=== PATIENT | female | born 1965 | race Caucasian/White ===

== ENCOUNTER 2023-02-21 02:05 | Inpatient (IN) | payer BC ==
[~2023-02-21] VITALS: Ht 172.7 cm; Wt 83.9 kg
[2023-02-21] VITALS (20 sets, daily range): BP systolic 108–162; BP diastolic 65–102; TEMP 97.5–98.3; O2SAT 92–99
[2023-02-21] MEDS ORDERED: ADENOSINE 6 MG/2 ML SYR IV ONE ×8 (02:15→16:15)
[2023-02-21 02:31] LABS: BASOPHILS % (AUTO) 0.2 % (0.0-2.0); EOSINOPHILS % (AUTO) 0.2 % (0.0-7.0); HEMATOCRIT 38.7 % (31.2-41.9); HEMOGLOBIN 12.9 g/dL (10.9-14.3); LYMPHOCYTES # (AUTO) 1.4 K/uL (0.8-4.8); LYMPHOCYTES % (AUTO) 15.1 % (20.5-51.5); MEAN CORPUSCULAR HEMOGLOBIN 27.1 uug (24.7-32.8); MEAN CORPUSCULAR HGB CONC 33 g/dL (32.3-35.6); MONOCYTES # (AUTO) 0.6 K/uL (0.1-1.30); MONOCYTES % (AUTO) 6.4 % (0.0-11.0); NEUTROPHILS # (AUTO) 7.3 K/uL (1.8-8.9); NEUTROPHILS % (AUTO) 78.1 % (38.5-71.5); PLATELET COUNT (AUTO) 311 K/uL (179-408); RED BLOOD CELL COUNT(AUTO) 4.78 MIL/uL (3.63-4.92); RED CELL DISTRIBUTION WIDTH 13.6 % (12.3-17.7); WHITE BLOOD COUNT (AUTO) 9.4 K/uL (3.8-11.8)
[2023-02-21 02:37] LABS: DIFFERENTIAL COMMENT 1
[2023-02-21 02:38] LABS: MAGNESIUM 1.8 mg/dL (1.8-2.4)
[2023-02-21] MEDS ORDERED: METOPROLOL SUCCINATE XL 25 MG TAB.SR.24H PO ONE (02:45)
[2023-02-21] MEDS ORDERED: IV NORMAL SALINE 500 ML BAG IV ONE (03:00)
[2023-02-21] MEDS ORDERED: DILTIAZEM HCL IV 20 MG in IV DEXTROSE 5% 100 ML IV ONE (03:00)
[2023-02-21] MEDS ORDERED: DILTIAZEM HCL 25 MG IV ONE ×2 (03:00→03:56)
[2023-02-21 03:41] LABS: THYROID STIMULATING HORMONE < 0.007 mIU/mL (0.358-3.740)
[2023-02-21] MEDS ORDERED: DILTIAZEM HCL IV ONE (03:45)
[2023-02-21] MEDS ORDERED: DEXTROSE 5% IV ONE (03:45)
[2023-02-21 03:48] LABS: CALCIUM 9.8 mg/dL (8.5-10.1); CREATININE 0.6 mg/dL (0.6-1.3); POTASSIUM 3.8 mmol/L (3.5-5.1)
[2023-02-21 03:54] LABS: ALBUMIN 3.9 g/dL (3.4-5.0); BILIRUBIN,TOTAL 0.4 mg/dL (0.2-1.0); TOTAL PROTEIN, SERUM 6.9 g/dL (6.4-8.2)
[2023-02-21] MEDS ORDERED: DILTIAZEM HCL IV 125 MG in IV NORMAL SALINE 100 ML IV PRN ×2 (04:30→05:30)
[2023-02-21] MEDS ORDERED: ACETAMINOPHEN 325 MG TABLET PO PRN ×2 (05:15→07:15)
[2023-02-21] MEDS ORDERED: MORPHINE SULFATE 2 MG/1 ML DISP.SYRIN IV PRN (05:15)
[2023-02-21] MEDS ORDERED: REMEDY ESSENTIAL ZINC PASTE 113 GM TP PRN (05:15)
[2023-02-21] MEDS ORDERED: MAGNESIUM HYDROXIDE 30 ML LIQUID UDC PO PRN (05:15)
[2023-02-21] MEDS ORDERED: ONDANSETRON 4 MG/2 ML VIAL IV PRN (05:15)
[2023-02-21] MEDS: ENOXAPARIN SODIUM 40 MG/0.4 ML DISP.SYRIN SQ SCH ×2 (08:50→17:58)
[2023-02-21] MEDS ORDERED: PANTOPRAZOLE SODIUM 40 MG VIAL IV SCH (09:00)
[2023-02-21] MEDS ORDERED: METHIMAZOLE 5 MG TABLET PO SCH (09:00)
[2023-02-21] MEDS: DILTIAZEM HCL CD 120 MG CAP.SR.24H PO SCH (11:15)
[2023-02-21] MEDS ORDERED: DILT120C87 PO (13:05)
[2023-02-21] MEDS ORDERED: METH5TAB34 PO (13:05)
[2023-02-21] MEDS ORDERED: FENTANYL CITRATE 100 MCG/2 ML AMPUL IV ONE (16:30)
[2023-02-21] MEDS ORDERED: ETOMIDATE 20 MG/10 ML VIAL IV ONE (16:30)
[2023-02-21] MEDS ORDERED: AMIODARONE HCL IV 150 MG in IV DEXTROSE 5% 100 ML IV ONE ×2 (16:45→17:00)
[2023-02-21] MEDS: AMIODARONE HCL IV 450 MG in IV DEXTROSE 5% 250 ML IV PRN (17:24)
[2023-02-21] MEDS: ENOXAPARIN SODIUM 80 MG/0.8 ML DISP.SYRIN SQ ONE ×3 (18:12→18:22)
[2023-02-22] VITALS (31 sets, daily range): BP systolic 106–174; BP diastolic 55–95; TEMP 97.8–98.9; O2SAT 90–100
[2023-02-22 05:05] LABS: BASOPHILS % (AUTO) 0.3 % (0.0-2.0); EOSINOPHILS # (AUTO) 0.1 K/uL (0.0-0.7); EOSINOPHILS % (AUTO) 1.4 % (0.0-7.0); HEMATOCRIT 34.9 % (31.2-41.9); HEMOGLOBIN 11.5 g/dL (10.9-14.3); LYMPHOCYTES # (AUTO) 1.4 K/uL (0.8-4.8); LYMPHOCYTES % (AUTO) 33.4 % (20.5-51.5); MEAN CORPUSCULAR HGB CONC 33 g/dL (32.3-35.6); MEAN CORPUSCULAR VOLUME 81.6 fL (75.5-95.3); MONOCYTES # (AUTO) 0.3 K/uL (0.1-1.30); MONOCYTES % (AUTO) 7.5 % (0.0-11.0); NEUTROPHILS # (AUTO) 2.5 K/uL (1.8-8.9); NEUTROPHILS % (AUTO) 57.4 % (38.5-71.5); PLATELET COUNT (AUTO) 220 K/uL (179-408); RED BLOOD CELL COUNT(AUTO) 4.27 MIL/uL (3.63-4.92); RED CELL DISTRIBUTION WIDTH 13.8 % (12.3-17.7); WHITE BLOOD COUNT (AUTO) 4.3 K/uL (3.8-11.8)
[2023-02-22 05:34] LABS: DIFFERENTIAL COMMENT 1
[2023-02-22 05:36] LABS: CALCIUM 8.5 mg/dL (8.5-10.1); CREATININE 0.5 mg/dL (0.6-1.3); MAGNESIUM 1.9 mg/dL (1.8-2.4); PHOSPHOROUS 3.5 mg/dL (2.5-4.9); POTASSIUM 3.7 mmol/L (3.5-5.1)
[2023-02-22] MEDS ORDERED: MORPHINE SULFATE 2 MG/1 ML DISP.SYRIN IV PRN (06:58)
[2023-02-22] MEDS ORDERED: METHIMAZOLE 5 MG TABLET PO SCH ×2 (09:00→16:30)
[2023-02-22] MEDS: ENOXAPARIN SODIUM 80 MG/0.8 ML DISP.SYRIN SQ SCH ×2 (09:19→20:33)
[2023-02-22] MEDS: DILTIAZEM HCL CD 120 MG CAP.SR.24H PO SCH (09:20)
[2023-02-22] MEDS: PANTOPRAZOLE SODIUM 40 MG TABLET.DR PO SCH (09:20)
[2023-02-22] MEDS: DILTIAZEM HCL IV 125 MG in IV NORMAL SALINE 100 ML IV PRN ×2 (11:26→18:47)
[2023-02-22] MEDS: AMIODARONE HCL IV 450 MG in IV DEXTROSE 5% 250 ML IV PRN ×3 (12:09)
[2023-02-22] MEDS ORDERED: AMIODARONE HCL IV 450 MG in IV DEXTROSE 5% 250 ML IV PRN (16:45)
[2023-02-23] VITALS (47 sets, daily range): BP systolic 71–149; BP diastolic 48–82; TEMP 97.6–98.1; O2SAT 90–99
[2023-02-23] MEDS: DILTIAZEM HCL IV 125 MG in IV NORMAL SALINE 100 ML IV PRN ×2 (03:41→15:41)
[2023-02-23] MEDS: PANTOPRAZOLE SODIUM 40 MG TABLET.DR PO SCH (06:57)
[2023-02-23 08:36] LABS: BASOPHILS % (AUTO) 0.3 % (0.0-2.0); EOSINOPHILS # (AUTO) 0.1 K/uL (0.0-0.7); EOSINOPHILS % (AUTO) 1.1 % (0.0-7.0); HEMATOCRIT 35.5 % (31.2-41.9); HEMOGLOBIN 11.7 g/dL (10.9-14.3); LYMPHOCYTES # (AUTO) 1.1 K/uL (0.8-4.8); MEAN CORPUSCULAR HEMOGLOBIN 26.9 uug (24.7-32.8); MEAN CORPUSCULAR HGB CONC 33 g/dL (32.3-35.6); MEAN CORPUSCULAR VOLUME 81.9 fL (75.5-95.3); MONOCYTES # (AUTO) 0.4 K/uL (0.1-1.30); MONOCYTES % (AUTO) 6.4 % (0.0-11.0); NEUTROPHILS # (AUTO) 4.6 K/uL (1.8-8.9); NEUTROPHILS % (AUTO) 74.2 % (38.5-71.5); PLATELET COUNT (AUTO) 242 K/uL (179-408); RED BLOOD CELL COUNT(AUTO) 4.34 MIL/uL (3.63-4.92); RED CELL DISTRIBUTION WIDTH 13.9 % (12.3-17.7); WHITE BLOOD COUNT (AUTO) 6.2 K/uL (3.8-11.8)
[2023-02-23 08:42] LABS: DIFFERENTIAL COMMENT 1
[2023-02-23 09:03] LABS: ALANINE AMINOTRANSFERASE 44 U/L (14-59); ALBUMIN 3.1 g/dL (3.4-5.0); ALKALINE PHOSPHATASE 101 U/L (50-136); ASPARTATE AMINOTRANSFERASE 14 U/L (15-37); BILIRUBIN,TOTAL 0.9 mg/dL (0.2-1.0); CALCIUM 9.1 mg/dL (8.5-10.1); CARBON DIOXIDE 26 mmol/L (21-32); CHLORIDE 106 mmol/L (98-107); CREATININE 0.4 mg/dL (0.6-1.3); GLUCOSE 123 mg/dL (74-106); POTASSIUM 3.6 mmol/L (3.5-5.1); SODIUM SERUM 140 mmol/L (136-145); TOTAL PROTEIN, SERUM 6.2 g/dL (6.4-8.2); UREA NITROGEN, BLOOD 10 mg/dL (7-18)
[2023-02-23] MEDS: ENOXAPARIN SODIUM 80 MG/0.8 ML DISP.SYRIN SQ SCH ×2 (09:18→21:14)
[2023-02-23] MEDS: METHIMAZOLE 5 MG TABLET PO SCH ×2 (09:19→16:53)
[2023-02-23] MEDS: ALPRAZOLAM 0.25 MG TABLET PO PRN ×2 (09:20→18:28)
[2023-02-23 09:50] LABS: THYROID STIMULATING HORMONE < 0.007 mIU/mL (0.358-3.740)
[2023-02-23] MEDS ORDERED: GLUCERNA SHAKE 237 ML CAN PO SCH (17:00)
[2023-02-24] MEDS ORDERED: PROTEIN SUPPLEMENT (PROSTAT) 30 ML LIQUID PO SCH (08:00)
== END 2023-02-23 21:30 | disposition short-term general hospital (02) | DRG 282 ==
LOC: ER 02:09 → CCU 06:30
PROVIDERS: ADMIT Nurse Practitioner Acute Care; ATTEND Nurse Practitioner Acute Care
PROC: 5A2204Z Restoration of Cardiac Rhythm, Single (ICD-10-PCS; principal; 2023-02-21)
DX: I47.19 Other supraventricular tachycardia (principal); I21.A1 Myocardial infarction type 2; I48.92 Unspecified atrial flutter; E66.9 Obesity, unspecified; Z68.28 Body mass index [BMI] 28.0-28.9, adult; E05.10 Thyrotoxicosis with toxic single thyroid nodule without thyrotoxic crisis or storm
CPT/HCPCS: 36415; 71045; 83605; 83735; 84100; 84443; 84481; 84484; 85025; 93005; 93307; A4606; G0378; J0153; J0282; J1650; J3010; J3490; J7040; J7050